=== PATIENT | female | born 1975 | race Caucasian/White ===

== ENCOUNTER 2021-01-25 05:33 | Inpatient (IN) | payer BC ==
[~2021-01-25] VITALS: Ht 177.8 cm; Wt 87.3 kg
[2021-01-25] VITALS (54 sets, daily range): BP systolic 104–189; BP diastolic 57–118; PULSE 65–134; TEMP 98–98.6
--- NOTE | 2021-01-25 05:35 | NUR ---
0535- PT PRESENTS TO LDR COMPLAINING OF LEAKING AMNIOTIC FLUID. AMBULATORY TO ROOM LR2, CHANGED INTO GOWN. 0540- EFM X2 APPLIED. PT DENIES CONTRACTIONS AND STATES SHE IS FEELING BABY MOVE. STATES SHE HAD A BIG GUSH OF FLUID AT 0450 AND THEN SHE NOTICED SOME PINK TINGED FLUID. PLAN OF CARE FOR LABOR CHECK DISCUSSED AND QUESTIONS ANSWERED.
--- NOTE | 2021-01-25 05:45 | NUR ---
0545- AMNITRACE POSITIVE WITH COPIOUS AMOUNTS OF CLEAR FLUID. SVE BY THIS NURSE 0-08/25-/-3. PLAN OF CARE FOR LABOR DISCUSSED AND QUESTIONS ANSWERED. 0550- PT UP TO BATHROOM. 0555- DR KAUR CALLED CHARTED AND ORDERS RECEIVED FOR ADMISSION.
--- NOTE | 2021-01-25 06:30 | NUR ---
0630-Patient up to bathroom. Recieved report from MATT Figueroa. Updated patient on orders to admit. Reviewed consents and assessment. 0710-IV to right wrist, blood collected and sent to lab per order and protocol. 0725-Dr. Angela to patient room. SVE by 3, large amount of clear fluid noted. Almita care provided. 0734-Pitocin started per MD order and protocol. Reviewed elevated BP's with MD on unit. VO to give Apresoline PRN 10mg IV Q1hr for diastolic BP >90.
[2021-01-25] MEDS ORDERED: ZOLOFT 50MG50 MG PO (07:25)
[2021-01-25] MEDS ORDERED: STOOL SOFTENER100 M2 PO (07:25)
[2021-01-25 07:36] LABS: BASO % 0.4 % (0.0-2.0); EOS # 0.2 (0.0-0.7); EOS % 1.8 % (0-4.0); GRAN # 6.1 (1.4-6.5); GRAN % 61.5 % (42.2-75.2); HEMATOCRIT 37.1 % (37.0-47.0); HEMOGLOBIN 12.6 g/dl (12.5-16.0); LYMPH # 2.8 (1.2-3.4); LYMPH % 28.4 % (20.0-51.0); MEAN CELL VOLUME 96 fl (80.0-100.0); MEAN CORPUSCULAR HEMOGLOBIN 33 pg (27.0-31.0); MEAN CORPUSCULAR HGB CONC 34 g/dl (33.0-37.0); MEAN PLATELET VOLUME 10.9 fl (7.4-10.4); MONO # 0.8 (0.1-0.6); MONO % 7.6 % (1.7-9.3); PLATELET COUNT 282 K/mm3 (130-400); RED BLOOD COUNT 3.87 M/mm3 (4.10-5.30); REDCELL DISTRIBUTION WIDTH-CV 13.6 % (11.5-14.5)
[2021-01-25] MEDS ORDERED: PRENATAL (08:07)
[2021-01-25] MEDS ORDERED: TUMS500 MG (08:08)
[2021-01-25 09:30] LABS: ALBUMIN 3.4 gm/dL (3.5-5.0); BILIRUBIN,TOTAL 0.2 mg/dL (0.0-1.0); CALCIUM 9.6 mg/dL (8.4-10.2); CREATININE, serum 0.81 (0.52-1.25); POTASSIUM 4.1 mmol/L (3.4-5.0); TOTAL PROTEIN 6.6 gm/dL (6.4-8.2)
--- NOTE | 2021-01-25 10:00 | NUR ---
1000-Patient feeling nauseated, 4mg IV zofran given see EMAR.
--- NOTE | 2021-01-25 11:00 | NUR ---
Patient very uncomfortable with contractions. Patient sitting in rocking chair and standing intermittently. 1120: SVE per Dr. Angela and states patient can have epidrual at this time. Nargis SANABRIA notified. 1135: Patient sat up for epidural placement and Francis Negron CRNA at bedside. 1138: Single shot given and patient tolerates well. 1141: Test dose given and patient tolerates well. 1145: Patient repositioned and plan of care/safety precautions discussed. 1220: Patient right lateral with left leg resting in stiirup. 1230: Intermittent late deceleration noted with spontaneous return of baseline. 1318: FHR tracing maternal heart rate and patient repositioned. 1355: Patient in arleth position. 1450: FHR baseline 145bpm with recurrent late decelerations. SVE-6/90/-1 and patient left lateral. 1545: Recurrent variable decelerations and patient repositioned and peanut ball in place. 1632: SVE-9-10/100/-1 and patient sitting up in arleth position to labor down and Dr. Angela updated. 1710: Patient vomitting at this time and FHR monitor tracing maternal heart rate. Monitor adjusted. 1715: Dr. Angela at bedside to assess and SVE-complete. Coe catheter removed and pushing instructions discussed. 1725: Patient pushing with each contraction and recurrent early/variable decelerations noted. 1750: Dr. Angela at nurses station reviewing FHR strip. Patient continues to push. 1810: Dr. Angela at bedside to assess progress and pushing with patient. 1820: Bedside report given to Ross GUTIERREZ.
--- NOTE | 2021-01-25 19:41 | NUR ---
1914- DR. TOSCANO IN ROOM ASSESSING PT, PUSHING WELL. 1919- SPONTANEOUS VAGINAL DELIVERY OF VIABLE BABY GIRL. BABY TO MOTHER'S CHEST, DRIED AND STIMULATED. BABY TO WARMER, BABY CARES ASSUMED BY Elliot SMITH RN. 1930- DR TOSCANO BEGINS REPAIR OF LEFT LABIAL LACERATION. 1940- MANUAL REMOVAL OF PLACENTA BY DR. TOSCANO, PITOCIN STARTED AT 333ML/HR PER PROTOCOL. REPAIR OF 2ND DEGREE PERINEAL LACERATION COMPLETED BY DR. TOSCANO. 1944- RECOVERY STARTED.
[2021-01-26 03:20] VITALS: BP 138/76; PULSE 106; TEMP 98
[2021-01-26 08:25] VITALS: BP 121/78; PULSE 95; TEMP 97.9
[2021-01-26 13:00] VITALS: BP 124/85; PULSE 91; TEMP 98.3
[2021-01-26 16:00] VITALS: BP 136/83; PULSE 82; TEMP 97.7
[2021-01-26 20:00] VITALS: BP 124/79; PULSE 88; TEMP 98.5
--- NOTE | 2021-01-27 06:01 | NUR ---
PATIENT WAS INVOLVED IN BABY'S CARE DURING SHIFT. SHE WAS ASKING PROPER WAYS TO SWADDLE THE BABY AND ATTEMPTED (SOME SUCCESSFUL) TO BREASTFEED BABY. REPORTED FEELING VERY TIRED AND SLEPT WHILE BABY STAYED IN NURSERY BETWEEN FEEDINGS. PT HAD MINIMAL PAIN OVERNIGHT. NO OTHER CONCERNS REPORTED AT THIS TIME.
[2021-01-27 07:20] VITALS: BP 139/85; PULSE 94; TEMP 98.8
[2021-01-27] MEDS ORDERED: PROCARDIA XL 3030 MG PO (09:05)
[2021-01-27] MEDS ORDERED: IBU600 MG PO (09:06)
== END 2021-01-27 16:40 | disposition home or self-care (01) | DRG 807 ==
LOC: LDRO 05:33 → LDR 06:02 → OB 06:02
PROVIDERS: Obstetrics & Gynecology; ADMIT Obstetrics & Gynecology
PROC: 10E0XZZ Delivery of Products of Conception, External Approach (ICD-10-PCS; principal; 2021-01-25)
PROC: 0KQM0ZZ Repair Perineum Muscle, Open Approach (ICD-10-PCS; 2021-01-25)
PROC: 10D17Z9 Manual Extraction of Products of Conception, Retained, Via Natural or Artificial Opening (ICD-10-PCS; 2021-01-25)
DX: O99.344 Other mental disorders complicating childbirth (principal); Z37.0 Single live birth; O13.3 Gestational [pregnancy-induced] hypertension without significant proteinuria, third trimester; O36.8330 Maternal care for abnormalities of the fetal heart rate or rhythm, third trimester, not applicable or unspecified; F41.9 Anxiety disorder, unspecified; O70.1 Second degree perineal laceration during delivery; Z3A.38 38 weeks gestation of pregnancy
CPT/HCPCS: J2405; J2590; J2791; J7120

== ENCOUNTER → 2021-02-14 | Outpatient (CLI) | payer BC ==
[~2021-02-14] MED LIST: IBU600 MG PO; PRENATAL; PROCARDIA XL 3030 MG PO; STOOL SOFTENER100 M2 PO; TUMS500 MG; ZOLOFT 50MG50 MG PO
--- NOTE | 2021-02-14 14:22 | NUR ---
Pt, Kiesha Lopez, presents for outpatient consult with 20 day old baby girl, Prema Lopez, to evaluate . Prema was born on [birth year] and weighed 7#3oz (3260 gms). They had difficulty from the beginning and at time of discharge Prema was bottle feeding and Kiesha was pumping. Pt reports that on 01/30/21 Prema weighed 6#11oz at Dr. Blanco's office. Today Prema weighs 8#1.5oz (3672 gms) for a gain of 22.5oz over the last 15 days. Prema is being fed ~3oz EMB and formula 8x per day. She has qs voids, pt reports Prema has one stool about every other day. At this appt she had a large dark green stool. Prema nurses each breast about 20 minutes. Post feed weight gain is 1oz (28 gms). Pt reports pumping BID or TID and collects 40-75ml average. Discuss with pt low milk volume likely r/t difficult nursing in the early days, high blood pressure, advanced maternal age and lack of engorgement as expected in the first week PP. Pt states she will try to be more diligent with pumping to see if she can increase milk supply. POC: continue bottle feeding Prema ad guillermo with EBM/formula. Increase frequency of pumping. F/U: to be determined based on milk production increasing.
== END ==
LOC: LAC 13:04
DX: Z39.1 Encounter for care and examination of lactating mother (principal); Z71.89 Other specified counseling